=== PATIENT | male | born 1955 | race Caucasian/White ===

== ENCOUNTER 2019-05-27 10:09 | Outpatient (CLI) | payer MEDICAID, SELFPAY ==
[2019-05-27 13:22] LABS: Calculated LDL 80 mg/dL; Cholesterol 164 mg/dL (50-200); HDL Cholesterol 42 mg/dL (40-60); Triglyceride 212 mg/dL (30-150)
[2019-05-28 09:24] LABS: PSA, Screening 0.6 ng/ml (0-4.5)
== END 2019-05-27 10:29 ==
PROVIDERS: PCP Emergency Medicine; Visit Provider Emergency Medicine
DX: I10 Essential (primary) hypertension (principal); Z12.5 Encounter for screening for malignant neoplasm of prostate
CPT/HCPCS: 36415; 80061; 84153

== ENCOUNTER 2019-08-27 11:48 | Outpatient (CLI) | payer MEDICAID, SELFPAY ==
[2019-08-27 12:43] LABS: Calculated LDL 108 mg/dL; Cholesterol 181 mg/dL (<200); HDL Cholesterol 44 mg/dL (40-60); Triglyceride 149 mg/dL (<150)
== END 2019-08-27 12:08 ==
PROVIDERS: PCP Emergency Medicine; Visit Provider Emergency Medicine
DX: R06.09 Other forms of dyspnea (principal); Z82.49 Family history of ischemic heart disease and other diseases of the circulatory system
CPT/HCPCS: 36415; 80061

== ENCOUNTER 2019-09-04 00:20 | Outpatient (CLI) | payer MEDICAID, SELFPAY ==
--- NOTE | 2019-09-04 10:41 | DI.NM_ITS ---
APPROVED REPORT Exam: Exercise Treadmill Patient Location: Out-Patient Room/Bed: Stress Nurse: Arina Shin RN BMI: 32.07 Baseline Rhythm: Sinus Bradycardia Indications: Patient reports on and off over the last few years he gets occasional SOB with mild e xertion with no other associated symptoms. His father had an [place] at age 60 and his brother at age 56 just had a stenting of his LAD. Medical History Medical History: GERD, Anxiety, Obesity , Obstructive sleep apnea Cardiac Medications: Aspirin, Amlodipine, Fish Oil , Hydrochlorothiazide, Lisinopril, Potassium Gluco jonathan Allergies: No known drug allergies Cardiac Risk Factors: FHX of CAD, HTN Previous Cardiac Procedures: None, CABG Pretest Chest Pain Characteristics: No chest pain Exercise History: Physically active Lung Sounds: Clear to auscultation Heart Sounds: Regular Stress Test Details Test: Exercise stress testing was performed using a Pipe protocol. Nuclear Acquisition: Stress Tc-99m/Stress Tc-99m 1 day Rest Isotope: Tc-99m Sestamibi. Dose: 12 Date: 09/04/2019 Injection Time: 0900 Stress Isotope: Tc-99m Sestamibi. Dose: 36 Date: 09/04/2019 Injection Time: 1050 HR Max Heart Rate (APMHR): 156 bpm Resting HR Supine: 53 bpm Target HR (85% APMHR): 132 bpm Resting HR Standin bpm Max HR Achieved: 154 bpm % of APMHR: 98 HR response to stress: Normal HR response to stress BP Resting BP Supine: 124/90 mmHg Resting BP Standin/70 mmHg Max BP: 188/80 mmHg BP response to stress: Normal blood pressure response to stress. ECG Resting ECG: Sinus Bradycardia ST Change: none Stress ECG: Sinus Tachycardia ST Change: ST Elevation Lead(s): aVR Arrhythmia: VPC's Recovery ECG: Sinus Rhythm Recovery ST Change: none Recovery Arrhythmia: VPC Clinical Reason for Termination: Fatigue and SOB Stress Symptoms: None Exercise duration: 9 min56 sec Highest Stage Achieved: Stage 4: 4.2 mph at 16% grade. Exercise capacity: 11.68 METs Functional Capacity: Average Capacity Stress ECG Conclusion 1. History size for 9 minutes and 56 seconds (11.6 METS) 2. Exercise was stopped due to fatigue and shortness of breath. The patient did not have chest pain. 3. There was isolated ST elevation in aVR without reciprocal ST depressions. Protocol Used: Pipe Protocol Stress Test Summary STAGE Time (mins) Speed (mph) Grade (%) HR BP SYMPTOMS METS Supine 53 124/90 Standing 60 120/70 1 3 1.7 10 92 148/80 4.6 2 6 2.5 12 114 172/80 7 3 9 3.4 14 138 184/82 10.2 4 12 4.2 16 12.9 5 15 5.0 18 17.2 1 min recovery 124 188/80 3 min recovery 93 170/82 6 min recovery 78 122/78 MPI Conclusion There is no evidence of ischemia on the imaging portion of this exam. Ejection fraction with stress was 42% There are discordant findings on ECG and imaging but with normal imaging, this likely represents a no rmal stress test.
[2019-09-04] MEDS: Regadenoson 0.4 MG/5 ML SYR IVP (12:40)
== END 2019-09-04 00:40 ==
PROVIDERS: PCP Emergency Medicine; Visit Provider Emergency Medicine
DX: R00.1 Bradycardia, unspecified; K21.9 Gastro-esophageal reflux disease without esophagitis; F41.9 Anxiety disorder, unspecified; Z82.49 Family history of ischemic heart disease and other diseases of the circulatory system; R06.09 Other forms of dyspnea
CPT/HCPCS: 78452; 93017; J2785

== ENCOUNTER 2020-03-23 15:11 | Outpatient (REF) | payer MEDICAID, SELFPAY ==
[2020-03-23 14:15] LABS: Anion Gap 10.7 mmol/L (3-11); BUN 20 mg/dL (7-18); CO2 25.3 mmol/L (21.0-32.0); CREATININE 1.05 mg/dL (0.70-1.30); Calcium 9.3 mg/dL (8.5-10.1); Chloride 103 mmol/L (98-107); Glucose 121 mg/dL (74-106); Potassium 3.9 mmol/L (3.5-5.1); Sodium 139 mmol/L (136-145)
== END 2020-03-23 15:31 ==
LOC: LBN 15:11
PROVIDERS: PCP Emergency Medicine; Visit Provider Emergency Medicine
DX: I10 Essential (primary) hypertension (principal)
CPT/HCPCS: 80048

== ENCOUNTER 2020-06-23 00:45 | Outpatient (CLI) | payer MEDICARE, MEDICAID, SELFPAY ==
--- NOTE | 2020-06-23 10:30 | DI.US_ITS ---
APPROVED REPORT EXAM: Comprehensive 2D, Doppler, and color-flow Echocardiogram Patient Location: Out-Patient [employer] Loading Machine Operator: Adriana Barton RDCS (AE) Indications: SOB Other Information Study Quality: Good Conclusion Left Ventricle : The left ventricle is normal size. The left ventricular systolic function is normal. The left ventricular ejection fraction is within the normal range. There is normal left ventricular wall thickness. There is normal LV segmental wall motion. The left ventricular diastolic function is normal. LVEF is 56%. Right Ventricle : The right ventricle is normal size. The right ventricular systolic function is norm al. The RVSP is 18.5 mmHg. Atria : The left atrium size is normal. The right atrium size is normal. Valves: There are no hemodynamically significant valvular lesions. Great Vessels : The aortic root is normal in size. The ascending aorta is normal in size. Aortic arch is normal in caliber. IVC is normal in size and collapses >50% with inspiration. No prior study available for comparison. Wall motion Left Ventricle The left ventricle is normal size. The left ventricular systolic function is normal. The left ventric ular ejection fraction is within the normal range. There is normal left ventricular wall thickness. T here is normal LV segmental wall motion. The left ventricular diastolic function is normal. There is no ventricular septal defect visualized. LVEF is 56%. Right Ventricle The right ventricle is normal size. The right ventricular systolic function is normal. The RVSP is 18 .5 mmHg. Atria The left atrium size is normal. The right atrium size is normal. The interatrial septum is intact wit h no evidence for an atrial septal defect. Aortic Valve The aortic valve is normal in structure. Aortic valve is trileaflet. There is no aortic valvular sten osis. Trivial aortic regurgitation. Mitral Valve The mitral valve is normal in structure. No evidence of mitral valve stenosis. Trace mitral regurgita tion. Tricuspid Valve The tricuspid valve is normal in structure. There is no tricuspid valve stenosis. Trace tricuspid reg urgitation. Pulmonic Valve The pulmonary valve is normal in structure. There is no pulmonic valvular stenosis. Mild pulmonic reg urgitation. Great Vessels The aortic root is normal in size. The ascending aorta is normal in size. Aortic arch is normal in ca liber. IVC is normal in size and collapses >50% with inspiration. Pericardium There is no pericardial effusion. 2D Dimensions IVSD d PLAX 0.91 cm M: 0.6-1.2 LV Vol A2C d MOD 115.9 mL LVPW d PLAX 0.93 cm M: 0.6 - 1.2 LV Vol A4C d MOD 77.7 mL LVID d PLAX 5.43 cm M: 4.2 - 5.8 LA vol/ BSA A2C s A-L 23.9 mL/m2 LVDs 3.75 cm M: 2.5 - 4.0 LA vol/ BSA A4C s A-L 13.1 mL/m2 Ao Root d 2.85 cm M: 3.1 - 3.7 LA Vol/ BSA Biplane s A-L 18.2 mL/m2 RA Area A4C 14.05 cm2 LA Area A4C s MOD 12.47 cm2 RA Vol/ BSA A4C s A-L 16.3 mL/m2 LA Area A2C s MOD 17.40 cm2 Ao Asc Diam d 3.17 cm M: 2.6 - 3.4 LV EF A4C MOD 56.0 % LV EF Teichholz 57.8 % LV EF A2C MOD 56.6 % LVEF (Best's) 56.68 % M: 52 - 72 LV EF Biplane MOD 56.7 % LV Volume 73.68 mL M: 62 - 150 SV 56.28 mL LV Volume Index 35.76 mL/m2 M: 34 - 74 SV Index 27.25 mL/m2 LV Vol Biplane MOD 99.3 mL FS 30.75 % M-Mode TAPSE 2.57 cm (M/F) >1.7 LV Diastology MV E' medial 0.064 (>0.07 m/s) E/A Ratio 0.9 LV E/e MED 9.45 (<14) MV E Vmax 0.60 (0.4-1.3 m/s) MV E' lateral 0.107 (>0.1 m/s) MV A Vmax 0.70 (0.4-1.3 m/s) LV E/e LAT 5.65 (<14) MV E/A Ratio 0.82 MV E/E' medial 9.49 MV E/E' lateral 5.66 Aortic Valve LVOT Area 3.29 cm2 AoV Area Vmax 3.00 cm2 LVOT Vmax 1.22 m/s AoV Area/ BSA (Vmax) 1.45 cm2/m2 LVOT Mean Tyler. 0.71 m/s MILO Mean Tyler. 2.55 cm2 LVOT Peak Grad 5.9 mmHg MILO Mean Tyler. Index 1.24 cm2/m2 LVOT Mean Grad 2.5 mmHg LVOT VTI 0.268 m LVOT Diam s 2.00 cm AoV Vmax 1.34 m/s Velocity Ratio 0.91 AoV Mean Tyler. 0.91 m/s AoV Peak Grad 7.1 mmHg LVOT SV 88.38 mL AoV Mean Grad 3.8 mmHg AoV VTI 0.282 m AoV Area VTI 3.13 cm2 AoV Area/ BSA (VTI) 1.52 cm/m2 Mitral Valve MV DT 220 (160-240 msec) MV PHT 64 msec MV Area PHT 3.45 cm2 Pulmonary Valve PV Vmax 1.18 (0.5-1.5 m/s) RVOT Peak Gr. 1.77 mmHg PV Peak Grad 5.6 mmHg RVOT Mean Gr. 0.80 mmHg PV Mean Grad 2.5 mmHg RVOT VTI 0.134 m PV VTI 0.248 m RVOT Vmax 0.67 m/s Tricuspid Valve TR Peak Grad 15.4 mmHg TR Vmax 1.97 m/s RA Pressure 3.00 mmHg RVSP (TR) 18.5 mmHg
== END 2020-06-23 01:05 ==
PROVIDERS: PCP Emergency Medicine; Visit Provider Internal Medicine Cardiovascular Disease
DX: R06.09 Other forms of dyspnea (principal); R06.02 Shortness of breath
CPT/HCPCS: 93306

== ENCOUNTER → 2020-06-29 09:54 | Outpatient (BNVA) | payer MEDICARE, MEDICAID, SELFPAY | PROVIDERS: PCP Emergency Medicine; Referring Provider Emergency Medicine; Visit Provider Internal Medicine Cardiovascular Disease | DX: R06.09 Other forms of dyspnea (principal); Z82.49 Family history of ischemic heart disease and other diseases of the circulatory system; E78.5 Hyperlipidemia, unspecified; I10 Essential (primary) hypertension | CPT/HCPCS: 99214 ==

== ENCOUNTER → 2020-07-08 11:15 | Outpatient (BNVA) | payer MEDICARE, MEDICAID, SELFPAY | PROVIDERS: PCP Emergency Medicine; Referring Provider Emergency Medicine; Visit Provider Internal Medicine Cardiovascular Disease | DX: R69 Illness, unspecified (principal) ==

== ENCOUNTER 2020-07-08 12:20 | Outpatient (REF) | payer MEDICARE, MEDICAID, SELFPAY ==
[2020-07-08 13:28] LABS: BUN 17 mg/dL (7-18); CREATININE 0.96 mg/dL (0.70-1.30); Calcium 9.3 mg/dL (8.5-10.1); Chloride 102 mmol/L (98-107); Glucose 108 mg/dL (74-106); Potassium 3.7 mmol/L (3.5-5.1); Sodium 138 mmol/L (136-145)
== END 2020-07-08 12:40 ==
LOC: LBN 12:20
PROVIDERS: PCP Emergency Medicine; Visit Provider Internal Medicine Cardiovascular Disease
DX: R06.09 Other forms of dyspnea (principal); I10 Essential (primary) hypertension; E78.5 Hyperlipidemia, unspecified
CPT/HCPCS: 80048

== ENCOUNTER → 2020-07-22 15:41 | Outpatient (BNVA) | payer MEDICARE, MEDICAID, SELFPAY | PROVIDERS: PCP Emergency Medicine; Referring Provider Emergency Medicine; Visit Provider Internal Medicine Cardiovascular Disease | DX: I10 Essential (primary) hypertension (principal); E66.3 Overweight; R06.09 Other forms of dyspnea; E78.5 Hyperlipidemia, unspecified | CPT/HCPCS: 99214; 99442 ==

== ENCOUNTER 2020-11-16 02:39 | Outpatient (CLI) | payer MEDICARE, MEDICAID, SELFPAY ==
[2020-11-17 12:27] LABS: COVID-19 RT-PCR UVMMC Result Negative (Negative)
== END 2020-11-16 02:40 | disposition home or self-care (01) ==
PROVIDERS: PCP Emergency Medicine; Visit Provider Emergency Medicine
DX: Z20.822 Contact with and (suspected) exposure to COVID-19 (principal); R51.9 Headache, unspecified
CPT/HCPCS: U0003; U0005

== ENCOUNTER 2021-01-14 02:40 | Outpatient (CLI) | payer MEDICARE, MEDICAID, SELFPAY ==
[2021-01-15 11:06] LABS: COVID-19 RT-PCR UVMMC Result Negative (Negative)
== END 2021-01-14 02:41 | disposition home or self-care (01) ==
LOC: LBO 02:40
PROVIDERS: PCP Emergency Medicine; Visit Provider Family Medicine
DX: Z20.822 Contact with and (suspected) exposure to COVID-19 (principal)
CPT/HCPCS: U0003; U0005

== ENCOUNTER 2021-05-12 09:36 | Outpatient (CLI) | payer MEDICARE, MEDICAID, SELFPAY ==
[2021-05-13 10:38] LABS: Lyme Ab w Rflx to Lyme Confirm Negative (Negative)
[2021-05-14 21:55] LABS: Anaplasma phagocytophilum Negative (Negative); B. miyamotoi PCR Negative (Negative); Babesia divergens/MO-1 Negative (Negative); Babesia duncani Negative (Negative); Babesia microti Negative (Negative); Ehrlichia chaffeensis Negative (Negative); Ehrlichia ewingii/canis Negative (Negative); Ehrlichia muris eauclairensis Negative (Negative)
== END 2021-05-12 09:37 | disposition home or self-care (01) ==
LOC: LOS 09:36
PROVIDERS: PCP Emergency Medicine; Referring Provider Nurse Practitioner Family; Visit Provider Nurse Practitioner Family
DX: W57.XXXA Bitten or stung by nonvenomous insect and other nonvenomous arthropods, initial encounter (principal); T14.8XXA Other injury of unspecified body region, initial encounter; R21 Rash and other nonspecific skin eruption; R53.81 Other malaise
CPT/HCPCS: 36415; 87798; 86618

== ENCOUNTER 2021-10-19 03:27 | Outpatient (CLI) | payer MEDICARE, MEDICAID, SELFPAY ==
[2021-10-19 13:09] LABS: Anion Gap 9.8 mmol/L (3-11); BUN 20 mg/dL (7-18); C-Reactive Protein 0.09 mg/dL (0.0-0.3); CO2 27.2 mmol/L (21.0-32.0); Chloride 102 mmol/L (98-107); Glucose 100 mg/dL (74-106); Potassium 4.1 mmol/L (3.5-5.1); Sodium 139 mmol/L (136-145); Uric Acid 4.6 mg/dL (3.5-7.2)
[2021-10-19 13:22] LABS: Calculated LDL 72 mg/dL (<100); Cholesterol 152 mg/dL (<200); HDL Cholesterol 49 mg/dL (40-60); Triglyceride 159 mg/dL (<150)
[2021-10-19 22:23] LABS: PSA, Screening 0.6 ng/mL (0.0-4.5)
== END 2021-10-19 03:28 | disposition home or self-care (01) ==
LOC: LBO 03:27
PROVIDERS: PCP Family Medicine; Visit Provider Emergency Medicine
DX: N40.1 Benign prostatic hyperplasia with lower urinary tract symptoms (principal); Z12.5 Encounter for screening for malignant neoplasm of prostate; M10.9 Gout, unspecified; I10 Essential (primary) hypertension
CPT/HCPCS: 36415; 80048; 80061; 84153; 84550; 86140

== ENCOUNTER → 2021-12-07 15:07 | Outpatient (CLI) | payer MEDICARE, MEDICAID, SELFPAY ==
--- NOTE | 2021-12-07 15:00 | DI.RAD_ITS ---
Exam(s) XR KNEE RT 3V AP,LAT,ABENA EXAM: XR KNEE RT 3V AP,LAT,ABENA CLINICAL HISTORY: bilat knee pain, NATALYA ANTERIOR KNEE PAIN, M25.561, M25.562. TECHNIQUE: 2D digital imaging was performed. COMPARISON: CR XR KNEE LT 3V AP,LAT,ABENA from 12/07/2021 FINDINGS: 3 views No evidence of fracture or prominent joint effusion. Mild narrowing of the medial compartment. No o steophytes. Bone density normal. No osseous lesions. IMPRESSION: Mild narrowing of the medial compartment. DATA REPOSITORY: RADIATION DOSE DELIVERED:
--- NOTE | 2021-12-07 15:00 | DI.RAD_ITS ---
Exam(s) XR KNEE LT 3V AP,LAT,ABENA EXAM: XR KNEE LT 3V AP,LAT,ABENA CLINICAL HISTORY: bilat knee pain, NATALYA ANTERIOR KNEE PAIN, M25.561, M25.562. TECHNIQUE: 2D digital imaging was performed. COMPARISON: CR XR KNEE RT 3V AP,LAT,ABENA from 12/07/2021 FINDINGS: 3 views No evidence of fracture nor prominent joint effusion. No joint space narrowing. No osteophytes. No osteochondral defects. Bone density normal. No osseous lesions IMPRESSION: No significant radiographic findings. DATA REPOSITORY: RADIATION DOSE DELIVERED:
== END ==
PROVIDERS: PCP Family Medicine; Visit Provider Family Medicine
DX: M25.561 Pain in right knee (principal); M25.562 Pain in left knee
CPT/HCPCS: 73562

== ENCOUNTER → 2022-05-15 09:28 | Outpatient (BNVA) | payer MEDICARE, MEDICAID, SELFPAY | PROVIDERS: PCP Family Medicine; Referring Provider Family Medicine; Visit Provider Surgery | DX: R14.3 Flatulence (principal); Z12.11 Encounter for screening for malignant neoplasm of colon ==

== ENCOUNTER 2022-05-23 11:10 | Outpatient (CLI) | payer MEDICARE, MEDICAID, SELFPAY ==
[2022-05-23 12:16] LABS: Abs Immature Grans 0.06 10^3/uL (0.0-0.06); Absolute Basophil Count 0.05 10^3/uL (0.0-0.2); Absolute Eosinophil Count 0.05 10^3/uL (0.0-0.7); Absolute Lymphocyte Count 0.99 10^3/uL (1.2-3.4); Absolute Neutrophil Count 9.85 10^3/uL (1.2-6.7); Basophils % 0.4; Eosinophils % 0.4; HCT 41.8 % (40.0-50.0); HGB 14.6 g/dL (13.5-17.5); Immature Grans % 0.5; Lymphocytes % 8.3; MCH 31.8 pg (27.0-33.0); MCHC 34.9 % (32.0-36.0); MCV 91 fL (80-95); MPV 12.6 fL (8.0-11.0); Monocytes % 7.6; Neutrophils % 82.8; Platelet Count 172 10^3/uL (130-400); RBC 4.59 10^6/uL (4.36-5.78); RDW 12.4 % (11.8-14.1); RDW-SD 41.1 fL
== END 2022-05-23 11:11 | disposition home or self-care (01) ==
LOC: LOS 11:11
PROVIDERS: PCP Family Medicine; Visit Provider Nurse Practitioner Family
DX: J02.9 Acute pharyngitis, unspecified (principal)
CPT/HCPCS: 36415; 85025

== ENCOUNTER 2022-06-15 18:36 | Outpatient (REF) | payer MEDICARE, MEDICAID, SELFPAY ==
[2022-06-15 21:00] LABS: BUN 13 mg/dL (7-18); Estimated GFR 82.49 (mL/min/1.73m2)
== END 2022-06-15 18:37 | disposition home or self-care (01) ==
LOC: LBN 18:36
PROVIDERS: PCP Family Medicine; Visit Provider Physician Assistant
DX: U07.1 COVID-19 (principal)
CPT/HCPCS: 84520; 82565

== ENCOUNTER → 2022-08-16 10:20 | Outpatient (BNVA) | payer MEDICARE, MEDICAID, SELFPAY | PROVIDERS: PCP Family Medicine; Referring Provider Family Medicine; Visit Provider Surgery | DX: Z12.11 Encounter for screening for malignant neoplasm of colon (principal) ==

== ENCOUNTER 2022-08-21 10:34 | Day surgery (SDC) | payer MEDICARE, MEDICAID, SELFPAY ==
--- NOTE | 2022-08-21 06:43 | W.COLOREPORT ---
Date of service: 08/21/22 Time of Service: 12:56 Colonoscopy Report Date of procedure: 08/21/22 Pre-op diagnosis general: colon cancer screening Post-op diagnosis procedure note: other (diverticulosis and polyps) Procedure: Colonoscopy with polypectomy Surgeon: Carmen Dyson Anesthesia Type: General:No Airway Estimated blood loss (mL): 5 Pathology: other (cecal polyp, descending polyp and sigmoid polyp) Complications: None Disposition: same day Indications: The patient is a pleasant 67-year-old male who is here to discuss another screening colonoscopy. He denies any changes in bowel habits, melena, hematochezia, unintentional weight loss or family history of colon cancer. The procedure and risks were discussed. The prep was reviewed in detail. Risks, benefits and complications have been reviewed. Complications include but are not limited to bleeding, pain, perforation, missed small lesion/polyp, sore throat, aspiration and adverse reaction to the medications. Questions were entertained and answered to their satisfaction and they wished to proceed. No guarantees were given or implied. Prep: Miralax/Dulcolax Procedure Start Time: 12:56 Procedure End Time: 13:30 Retraction Time: 16 minutes Findings: 3 small polyps mild diverticulosis Procedure Description: After informed consent was obtained the patient was taken to the procedure room and placed in a left decubitous position. Monitors were applied and a time out was done. The patients name, date of , procedure, allergies to medications and metal in their body was reviewed. The patient was then sedated. Once sedated and comfortable a rectal exam was done. External exam revealed some external skin tags. Internal exam revealed a normal sphincter tone and no palpable masses. The prostate felt smooth. The scope was then introduced and retro-flexed. No internal hemorrhoids, polyps or masses were identified on retro-flexion. The scope was then advanced to the cecum without difficulty. The ileocecal vlave and appendiceal orifice were identified. The prep was adequate. The scope was then slowly retracted over 16 minutes back into the rectum. Polyps were removed with cold forceps in the cecum, descending colon and sigmoid colon. There was mild to moderate sigmoid diverticulosis noted. The scope was removed and the patient was woken up and taken back to Same day surgery in stable condition. The patient tolerated the procedure well and there were no immediate complications.
--- NOTE | 2022-08-21 06:44 | W.PM.DSUDISC ---
Date of service: 08/21/22 Time of Service: 13:39 Discharge Plan Disposition Patient Disposition: HOME Condition: Good Discharge Details Reason For Visit: colonoscopy Attending Provider: Carmen Dyson Primary Care Provider: Naina Fair Home Meds and New Rx's Prescriptions: Continued Digest Adv Probio Plus Gas 2 billion cell capsule PO magnesium oxide 400 mg magnesium tablet 400 mg PO HS aspirin [Adult Low Dose Aspirin] 81 MG tablet,delayed release (DR/EC) 81 mg PO HS Label Comments: 02/01/18 restarted. xander 06/01/17 not taking juan m omeprazole magnesium [Prilosec OTC] 20 MG tablet,delayed release (DR/EC) 20 mg PO DAILY PRNQty: 90 PreserVision AREDS-2 1 EACH capsule 1 ea PO BID sildenafil [Viagra] 100 MG tablet 100 mg PO DAILY Qty: 36 4RF METAMUCIL POWDER 368 GM powder 1.5 tbs PO DAILY PRN allopurinol 100 mg tablet See Rx Instructions .ROUTE .COMPLEX Qty: 180 0RF Dose Instruction: TAKE 2 TABLETS BY MOUTH DAILY Rx Instructions: TAKE 2 TABLETS BY MOUTH DAILY lisinopril 5 mg tablet 10 mg PO DAILY Qty: 90 3RF amlodipine 5 mg tablet 5 mg PO HS pravastatin 10 mg tablet 10 mg PO HS Discontinued polyethylene glycol 3350 17 gram/dose powder 238 g PO ONCE Qty: 238 0RF Rx Instructions: take per colonoscopy instructions bisacodyl [Dulcolax (bisacodyl)] 5 mg tablet,delayed release (DR/EC) 5 mg PO ONCE Qty: 4 0RF Rx Instructions: take per colonoscopy instructions Discharge Instructions Instructions: Diverticulosis (DC), Colorectal Polyps (DC) Additional Instructions: Findings: 3 polyps Diverticulosis Follow up: 3-5 years Please call if you develop: fevers >101.5 Nausea or Vomiting Abdominal pain that is not transient Rectal bleeding that is more then a tbsp A hard abdomen and inability to pass gas DAY SURGERY UNIT POST ENDOSCOPY INSTRUCTIONS Instructions for everyone who is given Anesthesia: For your safety, please do the following for the next 24 Hours: a. Do not drive or operate dangerous equipment b. Do not drink alcohol beverages or use any recreational drugs for the first 24 hours or while taking pain medications. The medications in your body may have a reaction that can be dangerous. c. Do not make any important decisions or sign any important papers 1. Generally there are no restrictions on your activity after a day or so has gone by, but you may feel a bit fatigued for a few days. 2. After you arrive home you may have a light meal and return to a normal diet as you can tolerate it without feeling sick to your stomach. 3. After surgery, you may feel pain or discomfort. This should be only transient, but if it persists please contact your doctor. 4. If there are any questions regarding the findings of your procedure, please feel free to contact your doctor. 6. If you are unable to contact your doctor with a problem, contact the hospital at [phone]. 7. Continue all your regular medications unless directed otherwise. I understand the above instructions and have no questions. Signature of Patient or Responsible Adult Escort Date/Time Name of Responsible Adult Escort Signature of Nurse Date/Time Activity:: Activity as Tolerated Equipment/Supplies:: No Equipment Needed Diet:: high fiber diet
[2022-08-21 11:22] VITALS: BP 132/81; PULSE 67; RESP 16; TEMP 36.1; O2SAT 98
[2022-08-21] MEDS: Lactated Ringers 1,000 ML 80 ML IV (11:45)
--- NOTE | 2022-08-21 12:35 | W.ANESPRE ---
General Info Date of Service Date Performed: 08/21/22 Height: 5 ft 8 in Weight: 88.6 kg Body Mass Index (BMI): 29.7 Surgical Procedure: Operation Date: 08/21/22 12:05 Proposed Procedure Side Surgeon p Colonoscopy Carmen Dyson MD Meds Allergies and Home Medications Allergies Allergy/AdvReac Type Severity Reaction Status Date / Time No Known Allergies Allergy Verified 08/21/22 11:16 Home Medication Medication Instructions Recorded aspirin 81 mg tablet,delayed 81 mg PO HS 01/27/13 release (Adult Low Dose Aspirin) omeprazole magnesium 20 mg 20 mg PO DAILY PRN ##90 01/27/13 tablet,delayed release (Prilosec OTC) vit C 250 mg-vit E 90 mg-zinc 40 1 ea PO BID 02/01/18 mg-copper 1 [id number] capsule (PreserVision AREDS-2) sildenafil 100 mg tablet (Viagra) 100 mg PO DAILY #36 tab-caps 03/12/18 METAMUCIL POWDER 1.5 tbs PO DAILY PRN 10/29/19 magnesium oxide 400 mg PO HS 02/01/21 allopurinol 100 mg tablet See Rx Instructions .Route 12/08/21 .COMPLEX #180 tabs lisinopril 5 mg tablet 10 mg PO DAILY #90 tabs 01/06/22 B.coagulans 2 billion cap PO 05/15/22 cell-digestive enzymes combo no.10 capsule (Digestive Advantage Probiotics Plus Gas) bisacodyl 5 mg tablet,delayed 5 mg PO ONCE colonscopy bowel prep 08/16/22 release (Dulcolax (bisacodyl)) #4 tabs polyethylene glycol 3350 17 238 g PO ONCE colonoscopy prep 08/16/22 gram/dose oral powder #238 grams amlodipine 5 mg tablet 5 mg PO HS 08/18/22 pravastatin 10 mg tablet 10 mg PO HS 08/18/22 Current Visit Medications: Current Medications Generic Name Dose Route Start Last Admin Trade Name Freq PRN Reason Stop Dose Admin Hyoscyamine Sulfate 0.125 mg 08/21/22 06:45 Hyoscyamine 0.125 Mg Sl/Oral/Chew SL DIRECTED PRN Ringer's Solution 1,000 mls @ 80 mls/hr 08/21/22 06:00 08/21/22 11:45 IV 09/17/22 23:59 80 mls/hr INFUSION PORSCHE Administration IV Miscellaneous Supplies 1 each 08/21/22 06:00 Iv Access IV 09/17/22 23:59 DIRECTED PORSCHE Ondansetron HCl 4 mg 08/21/22 06:45 Ondansetron 4 Mg/2 Ml Vial IVP Q4H PRN PRN Nausea / Vomiting Sodium Chloride 0 ml 08/21/22 06:00 Normal Saline Flush 10 Ml Syr IV 09/17/22 23:59 PRN PRN Sodium Chloride 0 ml 08/21/22 06:00 Normal Saline 10 Ml Vial IJ 09/17/22 23:59 DIRECTED PRN Sterile Water 0 ml 08/21/22 06:00 Water,Injection,Sterile 10 Ml Vial IJ 09/17/22 23:59 DIRECTED PRN PFSH Active Problems Active Problems: Problem Status Onset Code Essential hypertension 02/01/18 I10 Gastroesophageal reflux disease with esophagitis K21.0 Gout M10.9 Sleep apnea 03/05/15 G47.30 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 both eyes 10/17/17 H35.3131 Gluten intolerance K90.41 Sensorineural hearing loss, bilateral H90.3 Tinnitus, bilateral H93.13 Flatulence R14.3 Obesity with serious comorbidity E66.9 Screening for colon cancer Z12.11 Excessive flatus R14.3 Sore throat J02.9 Left ear pain H92.02 Swollen lymph nodes R59.9 Medical History Medical History (Updated 08/21/22 @ 11:20 by Chanelle Randall) Anxiety (07/28/16) Diverticulosis of colon without diverticulitis pandiverticulosis Dyspnea on exertion Negative cardiac work-up Family history of early CAD (03/05/15) father [place] age 60 Brother age 59 HTN (hypertension) Polyp of colon sigmoid; rectal Rectal/anal ulcer per colonoscopy of 12/14/10 Sciatica Medical History Comments:: pt. drank black at 0700 Surgical History Surgical History (Updated 08/21/22 @ 11:19 by Chanelle Randall) Hx of colonoscopy Tobacco Smoking/Tobacco Use Status: Never Alcohol Alcohol Intake: current Alcohol intake frequency: a few times a month Alcohol type: wine and hard liquor Substance Use Substance use type: does not use Details: pt. reports no alcohol in the recent past Vital Signs and Lab Results Vital Signs Most Recent Vital Signs in EMR: Most Recent Vital Signs Temp Pulse Resp BP Pulse Ox 36.1 C L 67 16 132/81 98 08/21/22 11:22 08/21/22 11:22 08/21/22 11:22 08/21/22 11:22 08/21/22 11:22 Lab Results Blood Type / Crossmatch: No Data to Display Complete Blood Count: No Data to Display Complete Metabolic Panel: No Data to Display Liver Function Panel: No Data to Display Coagulation Panel: No Data to Display Cardiac Panel: No Data to Display Arterial Blood Gas: No Data to Display Venous Blood Gas: No Data to Display Pancreas Panel: No Data to Display Thyroid Panel: No Data to Display Infectious Disease: No Data to Display Blood Cultures: No Data to Display Toxicology Panel: No Data to Display Anesthesia Assessment and Plan Anesthesia History Personal History: No History of Anesthesia Complications Family History: No Family History of Anesthesia Complications Exercise Tolerance Exercise Tolerance: Metabolic Equivalents>4 Pertinent Negatives Pertinent Negatives: No Symptoms of GERD, No Major Cardiovascular Symptoms or Complaints, No Major Pulmonary Symptoms or Complaints (BRAXTON wears CPAP everynight) and No History of CVA/TIA Cardiac & Pulmonary Exam Cardiac Exam: Normal S1/S2 Heart Sounds Pulmonary Exam: Clear Bilateral Breath Sounds Implantable Cardiac Device Does patient have a Pacemaker or an ICD?: No Airway Exam Known Difficult Airway: No Mallampati Class: 1 Mouth Opening: Normal (> 3cm) Thyromental Distance: Greater than 3 cm Facial Hair: Full Diaz Neck Range of Motion: Full ROM Neck Circumference: Normal Teeth Condition: Normal Dentition ASA Classification ASA Score: ASA 2 Emergency Case?: No NPO Status NPO Status: NPO Clears >2 hours, Solids >8 hours Anesthesia Plan Resuscitation Status: Full Code Anesthesia Technique: General Anesthesia Airway Planned: Natural Airway Monitors Used: Standard Monitors
[2022-08-21 12:36] VITALS: BMI 29.7
--- NOTE | 2022-08-21 13:13 | BOWEL_PTH ---
PATIENT: Taran Rene LOC: [facility] U#:[id number] AGE/SX: 67/M ROOM: RE08/21/[address]: Carmen Dyson MD : 1955 BED: DIS: 08/21/2022 SPEC #: [id number] RECD: 08/21/22 17:10 STATUS: LETTY REMilan #: [id number] WALDEMAR: 08/21/22 13:[address]: Carmen Dyson DEPT: Surgical Specimen RECD BY: Brianda Whitehead ENTERED: 08/21/22 17:10 SP TYPE: Bowel OTHR DR: Naina Fair Tissues: 1 - BIOPSY BOWEL 2 - BIOPSY BOWEL 3 - BIOPSY BOWEL Procedures: GROSS AND MICRO LEVEL 4 Comments: [id number]
[2022-08-21 13:43] VITALS: BP 108/70; PULSE 51; RESP 18; TEMP 36.4; O2SAT 98
--- NOTE | 2022-08-21 13:44 | W.ANESPOSTOP ---
Postoperative Evaluation Date, Time and Location Date Performed: 08/21/22 Time Performed: 13:45 Patient Location: Day Surgery Unit Vital Signs Most Recent Imported Vital Signs: Most Recent Vital Signs Temp Pulse Resp BP Pulse Ox 36.1 C L 67 16 132/81 98 08/21/22 11:22 12 11:22 08/21/22 11:22 08/21/22 11:22 08/21/22 11:22 Most Recent Manually Entered Vital Signs: Adult Blood Pressure: 108/70 Heart Rate: 51 Respirations: 12 Oxygen Saturation (%): 98 Temperature (C): 36.3 C Pain Score (0-10 Scale): 0 Pain Score Most Recent Pain Score: Most Recent Pain Score Pain Level 0 08/21/22 11:22 Assessment Mental Status: Awake (Alert & Oriented to Patient Baseline) Airway and Respiratory Function: Patent airway with normal (patient baseline) respiratory exam Cardiovascular Function: Hemodynamically Stable Hydration Status: Adequately Hydrated Nausea & Vomiting: No Nausea or Vomiting Pain: Pt. Denies Any Pain Peripheral Nerve Block: Patient did not receive a nerve block
[2022-08-21 13:46] VITALS: BP 108/70; PULSE 51; RESP 12; TEMPC 36.3; O2SAT 98
[2022-08-21 14:12] VITALS: BP 114/84; PULSE 51; RESP 18; TEMP 36.4; O2SAT 98
== END 2022-08-21 14:30 | disposition home or self-care (01) ==
PROVIDERS: PCP Family Medicine; Visit Provider Surgery
PROC: 0DJD8ZZ Inspection of Lower Intestinal Tract, Via Natural or Artificial Opening Endoscopic (ICD-10-PCS; CPT 45378; principal; 2022-08-21 12:00)
DX: Z12.11 Encounter for screening for malignant neoplasm of colon (principal); K63.5 Polyp of colon; K57.30 Diverticulosis of large intestine without perforation or abscess without bleeding
CPT/HCPCS: 45380; 88305; J2704

== ENCOUNTER 2022-09-28 17:20 | Outpatient (REF) | payer MEDICARE, MEDICAID, SELFPAY ==
[2022-09-28 20:58] LABS: Bilirubin Negative (Negative); Blood Negative (Negative); Clarity Clear (Clear); Glucose Negative (Negative); Ketones Negative (Negative); Leukocyte Esterase Negative (Negative); Nitrite Negative (Negative); Specific Gravity 1.015 (1.005-1.025); Urobilinogen 0.2 EU/dL (Up TO 0.2); pH 7.5 (5-8)
== END 2022-09-28 17:21 | disposition home or self-care (01) ==
LOC: LBN 17:20
PROVIDERS: PCP Family Medicine; Visit Provider Nurse Practitioner Family
DX: R35.0 Frequency of micturition (principal); R39.89 Other symptoms and signs involving the genitourinary system
CPT/HCPCS: 81003

== ENCOUNTER 2023-03-01 11:25 | Outpatient (CLI) | payer MEDICARE, MEDICAID, SELFPAY ==
[2023-03-01 12:50] LABS: Abs Immature Grans 0.04 10^3/uL (0.0-0.06); Absolute Basophil Count 0.06 10^3/uL (0.0-0.2); Absolute Eosinophil Count 0.09 10^3/uL (0.0-0.7); Absolute Lymphocyte Count 1.29 10^3/uL (1.2-3.4); Absolute Monocyte Count 0.43 10^3/uL (0.1-0.8); Absolute Neutrophil Count 4.97 10^3/uL (1.2-6.7); Basophils % 0.9; Eosinophils % 1.3; HCT 41.7 % (40.0-50.0); HGB 14.6 g/dL (13.5-17.5); Immature Grans % 0.6; Lymphocytes % 18.8; MCH 31.7 pg (27.0-33.0); MCV 91 fL (80-95); Monocytes % 6.3; Neutrophils % 72.1; Platelet Count 204 10^3/uL (130-400); RBC 4.61 10^6/uL (4.36-5.78); RDW 12.7 % (11.8-14.1); RDW-SD 41.8 fL; WBC 6.88 10^3/uL (4.4-10.8)
[2023-03-01 13:16] LABS: Anion Gap 9.6 mmol/L (3-11); BUN 21 mg/dL (7-18); CO2 26.4 mmol/L (21.0-32.0); CREATININE 1.2 mg/dL (0.70-1.30); Calcium 9.2 mg/dL (8.5-10.1); Chloride 103 mmol/L (98-107); Estimated GFR 66.28 (mL/min/1.73m2); Glucose 102 mg/dL (74-106); Potassium 4.1 mmol/L (3.5-5.1); Sodium 139 mmol/L (136-145)
[2023-03-02 11:15] LABS: Lyme Ab w Rflx to Lyme Confirm Negative (Negative)
[2023-03-04 20:06] LABS: Anaplasma phagocytophilum Negative (Negative); B. miyamotoi PCR Negative (Negative); Babesia divergens/MO-1 Negative (Negative); Babesia duncani Negative (Negative); Babesia microti Negative (Negative); Ehrlichia chaffeensis Negative (Negative); Ehrlichia ewingii/canis Negative (Negative); Ehrlichia muris eauclairensis Negative (Negative)
== END 2023-03-01 11:26 | disposition home or self-care (01) ==
LOC: LOS 11:25
PROVIDERS: PCP Family Medicine; Visit Provider Nurse Practitioner Family
DX: R22.0 Localized swelling, mass and lump, head (principal); R22.1 Localized swelling, mass and lump, neck
CPT/HCPCS: 36415; 76536; 80048; 87798; 85025; 86618

== ENCOUNTER 2023-03-01 15:24 | Outpatient (CLI) | payer MEDICARE, MEDICAID, SELFPAY ==
--- NOTE | 2023-03-01 12:45 | DI.US_ITS ---
Exam(s) US SOFT TISSUE HEAD OR NECK EXAM: US SOFT TISSUE HEAD OR NECK CLINICAL HISTORY: mass or swelling behind rt ear, r22.0,r22.1. TECHNIQUE: Ultrasound was performed over the area of concern in the right retroareolar region. COMPARISON: None FINDINGS: In the retroauricular region there is a 6 x 5 x 6 mm cystic structure with increased through transmis maine which corresponds to the lump behind his ear. There are 2 slightly prominent lymph nodes in the posterior aspect on the right side of the neck a fe w cm below this level, these measuring approximately 7 x 6 mm. IMPRESSION: Nonspecific cystic abnormality corresponding to the palpable retroareolar findings, this measuring 6 x 5 x 6 mm on ultrasound. Possible abscess. Small reactive lymph nodes noted below this level. Recommend repeat ultrasound examination in few weeks time after treatment and if findings do not reso lve than contrast infused CT scan of the soft tissues of the neck would be considered at that time. DATA REPOSITORY:
== END 2023-03-01 15:44 ==
LOC: DI 15:25
PROVIDERS: PCP Family Medicine; Visit Provider Nurse Practitioner Family
DX: R22.0 Localized swelling, mass and lump, head (principal); R22.1 Localized swelling, mass and lump, neck
CPT/HCPCS: 76536

== ENCOUNTER 2023-09-24 13:52 | Outpatient (CLI) | payer MEDICARE, SELFPAY ==
[2023-09-24 13:39] LABS: Anion Gap 8.4 mmol/L (3-11); BUN 15 mg/dL (7-18); CO2 24.6 mmol/L (21.0-32.0); CREATININE 1.1 mg/dL (0.70-1.30); Calcium 9.2 mg/dL (8.5-10.1); Chloride 104 mmol/L (98-107); Estimated GFR 73.12 (mL/min/1.73m2); Glucose 124 mg/dL (74-106); Sodium 137 mmol/L (136-145); Vitamin B12 258 pg/mL (193-986)
[2023-09-24 13:52] LABS: Uric Acid 2.8 mg/dL (3.5-7.2)
== END 2023-09-24 13:53 | disposition home or self-care (01) ==
LOC: LOS 13:52
PROVIDERS: PCP Family Medicine; Visit Provider Family Medicine
DX: I10 Essential (primary) hypertension (principal); M10.9 Gout, unspecified; R26.89 Other abnormalities of gait and mobility
CPT/HCPCS: 36415; 80048; 82607; 84550

== ENCOUNTER → 2024-01-09 08:12 | Outpatient (BNVA) | payer MEDICARE, SELFPAY | PROVIDERS: PCP Family Medicine; Referring Provider Family Medicine; Visit Provider Psychiatry & Neurology Neurology | DX: R25.2 Cramp and spasm (principal); E53.8 Deficiency of other specified B group vitamins; R20.0 Anesthesia of skin; M48.061 Spinal stenosis, lumbar region without neurogenic claudication | CPT/HCPCS: 99215 ==

== ENCOUNTER 2024-07-15 15:19 | Outpatient (CLI) | payer MEDICARE, SELFPAY ==
--- NOTE | 2024-07-15 11:00 | DI.RAD_ITS ---
Exam(s) XR SHOULDER RT COMPLETE 2+V EXAM: XR SHOULDER RT COMPLETE 2+V CLINICAL HISTORY: RIGHT SHOULDER PAIN. TECHNIQUE: 2D digital imaging was performed. Two views. COMPARISON: No exams were available for comparison FINDINGS: BONES: No acute fracture is present. No bony destructive lesion is seen. JOINTS: No dislocation present. No significant spurring at AC joint and glenohumeral joint. Glenohu meral joint space is maintained. SOFT TISSUE: Normal. IMPRESSION: Unremarkable radiographs of the right shoulder. DATA REPOSITORY: RADIATION DOSE DELIVERED:
== END 2024-07-15 15:20 | disposition home or self-care (01) ==
LOC: DIORS 15:19
PROVIDERS: PCP Family Medicine; Referring Provider Family Medicine; Visit Provider Student in an Organized Health Care Education/Training Program
DX: M25.811 Other specified joint disorders, right shoulder (principal); M75.101 Unspecified rotator cuff tear or rupture of right shoulder, not specified as traumatic
CPT/HCPCS: 99213; 73030

== ENCOUNTER 2024-08-05 02:04 | Outpatient (CLI) | payer MEDICARE, SELFPAY ==
--- NOTE | 2024-08-05 06:45 | DI.MRI_ITS ---
Exam(s) MR UPPER JOINT RT WO EXAM: MR UPPER JOINT RT WO CLINICAL HISTORY: ? RTC TEAR,impingement rt shoulder,m25.811 TECHNIQUE: Multiplanar multisequence MRI of the shoulder was performed. COMPARISON: CR XR SHOULDER RT COMPLETE 2+V from 07/15/2024 FINDINGS: MARROW:There is no evidence of fracture, Hill-Sachs deformity, nor ominous osseous lesions. There are few degenerative subarticular cysts in the posterolateral aspect of head. GLENOHUMERAL JOINT: Minimal aunt of increased joint fluid. No loose intra-articular bodies evident. There is some mild-moderate cartilage loss over the articular surfaces. There are no degenerative cysts at this level. There is a tiny osteophyte on the inferior aspect of the humeral head articular surface. ROTATOR CUFF MECHANISM: AC JOINT/ACROMIUM: There are mild degenerative changes at the AC joint. There is mild hypertrophy ti ssue on the undersurface of this articulation. There is no undersurface osteophytic ridge on the acr omium.. There is no evidence of os acromiale. Supraspinatus: Supraspinatus tendon exhibits some thickening and increased signal consistent with ten dinosis-tendinitis. This is most evident in the anterior aspect of the tendon. There also appears t o be an area of partial thickness articular side partial tearing of the supraspinatus tendon at the f oot pad insertional aspect on the greater tuberosity. There is, however, small amount of fluid in th e overlying subacromial-subdeltoid bursa. There is no atrophy of the supraspinatus muscle belly. Infraspinatus: Some tendinitis signal evident. There are multiple tiny degenerative subarticular cys ts in the posterolateral humeral head subjacent to the infraspinatus insertion site. No atrophy of t he muscle belly. Teres Minor: Intact. No evidence of tear nor muscle atrophy. Subscapularis/anterior cuff: Mild tendinitis signal. No high-grade tear. No atrophy. BICEPS TENDON: Exhibits normal position within the intertubercular groove. No evidence of tear. LABRUM: There is mild degenerative fraying of the superior labrum but no prominent SLAP tear. There is some mild signal abnormality in the anterosuperior labrum as well as in the anteroinferior labrum consistent with some degenerative fraying. The posterior labrum appears unremarkable. There is no disruption of the labral ligamentous/capsular complex. No evidence of paralabral cysts. IMPRESSION: 1. There is tendinosis/tendinitis in the supraspinatus tendon, most prominent anteriorly and there is an area of partial-thickness articular side tearing of the tendon at the foot pad insertional aspect . There is a small amount of fluid in the overlying subacromial-subdeltoid bursa which may indicate the presence of an occult small full-thickness tear or may imply bursitis accompanying the rotator cu ff findings 2. There is also tendinitis signal in the infraspinatus. Also mild tendinitis in the anterior cuff-s ubscapularis. 3. There is some degenerative fraying of the labrum anteriorly and superiorly with suggestion of some tearing in the anterior superior labrum. Posterior labrum appears intact. No evidence of paralabra l cyst. 4. Biceps tendon appears intact. DATA REPOSITORY:
== END 2024-08-05 02:24 ==
LOC: DI 02:04
PROVIDERS: PCP Family Medicine; Visit Provider Student in an Organized Health Care Education/Training Program
DX: M75.111 Incomplete rotator cuff tear or rupture of right shoulder, not specified as traumatic (principal)
CPT/HCPCS: 73221

== ENCOUNTER → 2024-08-12 10:42 | Outpatient (BNVA) | payer MEDICARE, SELFPAY | PROVIDERS: PCP Family Medicine; Referring Provider Family Medicine; Visit Provider Student in an Organized Health Care Education/Training Program | DX: M75.101 Unspecified rotator cuff tear or rupture of right shoulder, not specified as traumatic (principal) | CPT/HCPCS: 20610; J1010 ==

== ENCOUNTER 2024-09-22 03:57 | Outpatient (CLI) | payer MEDICARE, SELFPAY ==
[2024-09-22 10:17] LABS: HCT 41.9 % (40.0-50.0); HGB 14.7 g/dL (13.5-17.5); MCH 31.5 pg (27.0-33.0); MCHC 35.1 % (32.0-36.0); MCV 90 fL (80-95); MPV 11.4 fL (8.0-11.0); Platelet Count 190 10^3/uL (130-400); RBC 4.66 10^6/uL (4.36-5.78); RDW-SD 42.5 fL; WBC 7.33 10^3/uL (4.4-10.8)
[2024-09-22 11:14] LABS: ALT 29 U/L (16-63); AST 24 U/L (15-37); Albumin 4.1 g/dL (3.4-5.0); Alkaline Phosphatase 82 U/L (46-116); Anion Gap 7.1 mmol/L (3-11); BUN 22 mg/dL (7-18); Bilirubin, Total 0.55 mg/dL (0.2-1.0); CO2 26.9 mmol/L (21.0-32.0); CREATININE 1.1 mg/dL (0.70-1.30); Calcium 9.5 mg/dL (8.5-10.1); Chloride 105 mmol/L (98-107); Estimated GFR 72.67 (mL/min/1.73m2); Glucose 142 mg/dL (74-106); Potassium 4.1 mmol/L (3.5-5.1); Sodium 139 mmol/L (136-145); Total Protein 7.1 g/dL (6.4-8.2); Uric Acid 4.5 mg/dL (3.5-7.2)
== END 2024-09-22 03:58 | disposition home or self-care (01) ==
LOC: LOS 03:57
PROVIDERS: PCP Family Medicine; Visit Provider Family Medicine
DX: M1A.0790 Idiopathic chronic gout, unspecified ankle and foot, without tophus (tophi) (principal); M1A.9XX0 Chronic gout, unspecified, without tophus (tophi)
CPT/HCPCS: 36415; 80053; 85027; 84550

== ENCOUNTER 2024-10-15 13:32 | Outpatient (CLI) | payer MEDICARE, SELFPAY ==
[2024-10-15 12:51] LABS: Hemoglobin A1C 5.5 % (<5.7)
[2024-10-15 13:01] LABS: Calculated LDL 56 mg/dL (<100); Cholesterol 133 mg/dL (<200); HDL Cholesterol 52 mg/dL (40-60); Triglyceride 127 mg/dL (<150); Vitamin B12 538 pg/mL (193-986)
== END 2024-10-15 13:33 | disposition home or self-care (01) ==
LOC: LOS 13:32
PROVIDERS: PCP Family Medicine; Visit Provider Family Medicine
DX: E53.8 Deficiency of other specified B group vitamins (principal); Z13.6 Encounter for screening for cardiovascular disorders; Z13.1 Encounter for screening for diabetes mellitus; G47.33 Obstructive sleep apnea (adult) (pediatric); E66.811 Obesity, class 1; E66.09 Other obesity due to excess calories; Z68.33 Body mass index [BMI] 33.0-33.9, adult; I10 Essential (primary) hypertension; R07.89 Other chest pain
CPT/HCPCS: 36415; 80061; 82607; 83036

== ENCOUNTER → 2024-11-11 13:50 | Outpatient (BNVA) | payer MEDICARE, SELFPAY | PROVIDERS: PCP Family Medicine; Visit Provider Student in an Organized Health Care Education/Training Program | DX: M75.111 Incomplete rotator cuff tear or rupture of right shoulder, not specified as traumatic (principal) | CPT/HCPCS: 99213 ==